=== PATIENT | female | born 1995 | race Hispanic/Latino ===

== ENCOUNTER 2016-05-18 09:45 | Observation (INO) | payer OTHER ==
[2016-05-18 09:48] VITALS: BMI 21.7
--- NOTE | 2016-05-18 09:58 | ED PDOC ---
HPI: General Adult Time Seen by Provider: 05/18/16 09:50 Chief Complaint (Nursing): Abdominal Pain Chief Complaint (Provider): abdominal pain History Per: Patient History/Exam Limitations: no limitations Additional Complaint(s): 21yo female brought in by EMS for complaint of diffuse abdominal pain since yesterday morning. States this has never happened before. Pain has been worse since 0300 today. Laying flat or standing up makes it worse. She's had 6x episodes vomit, but no diarrhea, urinary symptoms, changes in bowel movements, vaginal discharge. Last menstrual period was 2 weeks ago. States she's had spotting for 2 days but this is normal for her. No Hx ovarian cysts. Past Medical History Reviewed: Historical Data, Nursing Documentation, Vital Signs Vital Signs: Last Vital Signs Temp 98.8 F 05/18/16 09:46 Pulse 66 05/18/16 09:46 Resp BP 134/92 H 05/18/16 09:46 Pulse Ox 99 05/18/16 12:14 - Medical History PMH: No Chronic Diseases - Surgical History Surgical History: No Surg Hx - Family History Family History: States: Unknown Family Hx - Immunization History Hx Tetanus Toxoid Vaccination: No - Home Medications Home Medications: Ambulatory Orders Medication Instructions Recorded No Known Home Med 05/18/16 - Allergies Allergies/Adverse Reactions: Allergies Allergy/AdvReac Type Severity Reaction Status Date / Time No Known Allergies Allergy Unverified 05/18/16 10:02 Review of Systems ROS Statement: Except As Marked, All Systems Reviewed And Found Negative Constitutional: Negative for: Fever, Chills, Weakness, Malaise Eyes: Negative for: Pain ENT: Negative for: Ear Pain Cardiovascular: Negative for: Chest Pain Respiratory: Negative for: Cough, Shortness of Breath, SOB with Exertion Gastrointestinal: Positive for: Nausea, Vomiting, Abdominal Pain. Negative for : Diarrhea, Constipation Genitourinary Female: Positive for: Vaginal Bleeding (spotting). Negative for: Dysuria, Frequency, Hematuria, Vaginal Discharge Musculoskeletal: Negative for: Neck Pain Skin: Negative for: Rash Neurological: Negative for: Weakness, Numbness, Incoordination, Altered Mental Status Psych: Negative for: Anxiety, Depression Physical Exam - Reviewed Nursing Documentation Reviewed: Yes Vital Signs Reviewed: Yes - Physical Exam Appears: Positive for: Well, Non-toxic, No Acute Distress Head Exam: Positive for: ATRAUMATIC, NORMAL INSPECTION, NORMOCEPHALIC Skin: Positive for: Warm, Dry Eye Exam: Positive for: EOMI, PERRL Cardiovascular/Chest: Positive for: Regular Rate, Rhythm Respiratory: Positive for: Normal Breath Sounds. Negative for: Rales, Rhonchi, Wheezing Gastrointestinal/Abdominal: Positive for: Soft, Tenderness (suprapubic tenderness bilaterally, R>L) Pelvic Exam: Positive for: No Cerv. Motion Tender, Other (os is closed. R sided tenderness). Negative for: Cervicitis, Discharge, Tender W/Cervical Motion Extremity: Positive for: Normal ROM Neurologic/Psych: Positive for: Alert, Oriented - Laboratory Results Result Diagrams: 05/18/16 10:05 05/18/16 10:05 - ECG O2 Sat by Pulse Oximetry: 99 (RA) Pulse Ox Interpretation: Normal Medical Decision Making Medical Decision Makin differential includes UTI, , ovarian cyst, appendicitis. Plan: -labs -zofran -reglan --pain medication -iv fluids -reassess 1048 CT abd/pel w/ ordered due to concern for appendicitis. Labs significant for elevated wbc and anemia. UA negative. negative. Pending CT read 12:03 CT shows acute appendicitis. Surgery attending and resident paged. 12:[address] Thomas who is requesting NPO and Zosyn, with admission to hospitalist 1:[address] Sofia, hospitalist who accepts admission under his service. Disposition - Clinical Impression Clinical Impression: Appendicitis - Disposition Disposition Time: 12:06 Condition: FAIR Additional Comments - Additional Comments Additional Comments: Scribe Attestation: Documented by Calvin Gonzalez acting as a scribe for Pamela Hughes MD. Scribe Attestation: All medical record entries made by the Scribe were at my direction and personally dictated by me. I have reviewed the chart and agree that the record accurately reflects my personal performance of the history, physical exam, medical decision making, and the department course for this patient. I have also personally directed, reviewed, and agree with the discharge instructions and disposition.
[2016-05-18 10:19] LABS: BASO % 0.3 % (0.0-2.0); LYMPH # 0.8 K/uL (1.0-4.3); MEAN CELL VOLUME 81.1 fl (81.0-99.0); MEAN CORPUSCULAR HEMOGLOBIN 25.7 pg (27.0-31.0); MEAN CORPUSCULAR HGB CONC 31.7 g/dL (33.0-37.0); MEAN PLATELET VOLUME 9.1 fl (7.2-11.7); MONO # 0.8 K/uL (0.0-0.8); MONO % 5.5 % (0.0-10.0); NEUT # 13.7 K/uL (1.8-7.0); NEUT % 89.2 % (50.0-75.0); PLATELET COUNT 287 K/uL (130-400); RED CELL DISTRIBUTION WIDTH 15.1 % (11.5-14.5); WHITE BLOOD COUNT 15.4 K/uL (4.8-10.8)
[2016-05-18 10:30] LABS: ALB/GLOB RATIO 1.1 (1.0-2.1); ALKALINE PHOSPHATASE 58 U/L (38-126); ALT/SGPT 9 U/L (9-52); AST/SGOT 31 U/L (14-36); BILIRUBIN,TOTAL 0.6 mg/dl (0.2-1.3); BLOOD UREA NITROGEN 10 mg/dl (7-17); CALCIUM 9.4 mg/dL (8.4-10.2); CARBON DIOXIDE 20 mmol/L (22-30); CHLORIDE 104 mmol/L (98-107); GFR AFRICAN-AMERICAN > 60; GLUCOSE,RANDOM 105 mg/dL (65-105); LIPASE 107 U/L (23-300); MAGNESIUM 1.8 MG/DL (1.6-2.3); PHOSPHOROUS 3.9 mg/dl (2.5-4.5); SODIUM 139 mmol/l (132-148)
[2016-05-18 10:31] LABS: POTASSIUM 4.2 MMOL/L (3.6-5.0)
[2016-05-18] MEDS ORDERED: Sodium Chloride 0.9% 50 ML IV ONE (10:57)
[2016-05-18] MEDS ORDERED: Iohexol 300 100 ML IJ ONE (10:57)
[2016-05-18 10:58] LABS: RBC URINE 1 /hpf (0-3); URINE BILIRUBIN NEGATIVE (NEGATIVE); URINE BLOOD NEGATIVE (NEGATIVE); URINE COLOR YELLOW (YELLOW); URINE GLUCOSE (UA) NEG (Normal); URINE KETONE 80 mg/dL (NEGATIVE); URINE LEUKOCYTE ESTERASE NEG Leu/uL (Negative); URINE PROTEIN 30 mg/dL (NEGATIVE); URINE UROBILINOGEN 0.2-1.0 mg/dL (0.2-1.0); WBC URINE 1 /hpf (0-5)
[2016-05-18 11:42] LABS: NEUTROPHIL 82 % (42-75); REACTIVE LYMPHOCYTES 2 % (0-0); TOTAL CELLS COUNTED 100
[2016-05-18 11:45] LABS: LARGE PLATELETS PRESENT; PLATELET CLUMPS PRESENT
[2016-05-18 11:46] LABS: SPHEROCYTES SLIGHT
--- NOTE | 2016-05-18 11:59 | CT ---
PROCEDURE: CT Abdomen and Pelvis with contrast HISTORY: RLQ abdominal pain COMPARISON: None. TECHNIQUE: CT scan of the abdomen and pelvis was performed after intravenous administration of contrast. Oral contrast was not administered. Contrast dose: 95 mL Omnipaque 300 Radiation dose: Total exam DLP = 582.81 mGy-cm. This CT exam was performed using one or more of the following dose reduction techniques: Automated exposure control, adjustment of the mA and/or kV according to patient size, and/or use of iterative reconstruction technique. FINDINGS: LOWER THORAX: The lung bases are clear. LIVER: The liver is enlarged. There is homogeneous enhancement without focal mass. There is no intrahepatic biliary ductal dilatation. GALLBLADDER AND BILE DUCTS: There are no calcified gallstones. PANCREAS: The pancreas is normal in size and there is homogeneous enhancement without focal mass or ductal dilatation. SPLEEN: The spleen is normal in size and there is homogeneous enhancement without focal lesion. ADRENALS: Both adrenal glands are normal in size without discrete nodule. KIDNEYS AND URETERS: Both kidneys are normal in size and there is homogeneous enhancement without hydronephrosis or focal mass. VASCULATURE: Normal in appearance. No aortic aneurysm. BOWEL: The small bowel loops are normal in caliber. There is no evidence of bowel dilatation or wall thickening. There is moderate amount of stool in the colon. There is no evidence of bowel obstruction. APPENDIX: The appendix is fluid filled, distended and measures 16 mm in diameter. There are 2 appendicoliths in the tip of the appendix. There are minimal inflammatory changes in the right lower quadrant. PERITONEUM: There is moderate amount of free fluid in the pelvis. No free air. LYMPH NODES: No enlarged lymph nodes. BLADDER: The urinary bladder is partially distended and there is apparent moderate mural thickening likely related to underdistention. REPRODUCTIVE: Unremarkable. BONES: No acute fracture. Within normal limits for the patient's age. OTHER FINDINGS: None. IMPRESSION: Acute appendicitis. No evidence of perforation or abscess. Mild hepatomegaly. Clinical follow-up is advised.
[2016-05-18] MEDS ORDERED: Sodium Chloride 0.9% 1,000 ML IV SCH ×2 (13:00→18:20)
--- NOTE | 2016-05-18 13:26 | CP.PCM.HP ---
History of Present Illness - History of Present Illness History of Present Illness: 21 yo female with no significant PMH came in because of severe mid suparpubic pain since yesterday. Pain initially was on and off but has been more constant and unbearable today. Accompanying symptom was nausea and vomiting of previously taken food. Denied diarrhea, fever, chills or vaginal discharge. Present on Admission - Present on Admission Any Indicators Present on Admission: No History of DVT/PE: No History of Uncontrolled Diabetes: No Urinary Catheter: No Decubitus Ulcer Present: No Review of Systems - Review of Systems All systems: reviewed and no additional remarkable complaints except (aside from those mentioned above, 12 point system review were negative by me) Past Patient History - Infectious Disease Hx of Infectious Diseases: None - Past Social History Smoking Status: Never Smoked Chewing Tobacco Use: No Cigar Use: No Alcohol: Occasional Drugs: Denies - CARDIAC Hx Cardiac Disorders: No - PULMONARY Hx Respiratory Disorders: No - NEUROLOGICAL Hx Neurological Disorder: No - HEENT Hx HEENT Problems: No - RENAL Hx Chronic Kidney Disease: No - ENDOCRINE/METABOLIC Hx Endocrine Disorders: No - HEMATOLOGICAL/ONCOLOGICAL Hx Blood Disorders: No - INTEGUMENTARY Hx Dermatological Problems: No - MUSCULOSKELETAL/RHEUMATOLOGICAL Hx Musculoskeletal Disorders: No - GASTROINTESTINAL Hx Nausea: Yes Hx Vomiting: Yes - GENITOURINARY/GYNECOLOGICAL Hx Genitourinary Disorders: No - PSYCHIATRIC Hx Psychophysiologic Disorder: No Hx Substance Use: No - SURGICAL HISTORY Hx Surgeries: No - ANESTHESIA Hx Anesthesia: No Meds Allergies/Adverse Reactions: Allergies Allergy/AdvReac Type Severity Reaction Status Date / Time No Known Allergies Allergy Unverified 05/18/16 10:02 Physical Exam - Constitutional Appears: No Acute Distress - Head Exam Head Exam: ATRAUMATIC - Eye Exam Eye Exam: absent: Scleral icterus - ENT Exam ENT Exam: Mucous Membranes Moist - Neck Exam Neck exam: Negative for: Meningismus - Respiratory Exam Respiratory Exam: absent: Rhonchi, Respiratory Distress - Cardiovascular Exam Cardiovascular Exam: REGULAR RHYTHM, +S1, +S2 - GI/Abdominal Exam GI & Abdominal Exam: Soft, Tenderness. absent: Guarding, Rebound, Rigid - Rectal Exam Rectal Exam: Deferred - Extremities Exam Extremities exam: Negative for: pedal edema - Back Exam Back exam: absent: tenderness - Neurological Exam Neurological exam: Alert, Oriented x3 - Psychiatric Exam Psychiatric exam: Normal Affect - Skin Skin Exam: Dry, Intact Results - Vital Signs Recent Vital Signs: Last Vital Signs Temp 98.8 F 05/18/16 09:46 Pulse 66 05/18/16 09:46 Resp BP 134/92 H 05/18/16 09:46 Pulse Ox 99 05/18/16 13:02 - Labs Result Diagrams: 05/18/16 10:05 05/18/16 10:05 Labs: Laboratory Results - last 24 hr 05/18/16 05/18/16 10:05 10:20 WBC 15.4 H RBC 4.07 Hgb 10.4 L Hct 33.0 L MCV 81.1 MCH 25.7 L MCHC 31.7 L RDW 15.1 H Plt Count 287 MPV 9.1 Neut % (Auto) 89.2 H Lymph % (Auto) 5.0 L [place] % (Auto) 5.5 Eos % (Auto) 0.0 Baso % (Auto) 0.3 Neut # 13.7 H Lymph # 0.8 L [place] # 0.8 Eos # 0.0 Baso # 0.0 Neutrophils % (Manual) 82 H Band Neutrophils % 6 H Lymphocytes % (Manual) 4 L Reactive Lymphs % 2 H Monocytes % (Manual) 6 Platelet Estimate Normal Plt Clumps, EDTA Present Large Platelets Present Hypochromasia (manual) Slight Anisocytosis (manual) Slight Spherocytes Slight Sodium 139 Potassium 4.2 Chloride 104 Carbon Dioxide 20 L Anion Gap 19 BUN 10 Creatinine 0.7 Est GFR ( Amer) > 60 Est GFR (Non-Af Amer) > 60 Random Glucose 105 Calcium 9.4 Phosphorus 3.9 Magnesium 1.8 Total Bilirubin 0.6 AST 31 ALT 9 Alkaline Phosphatase 58 Total Protein 8.0 Albumin 4.2 Globulin 3.8 Albumin/Globulin Ratio 1.1 Lipase 107 Urine Color Yellow Urine Clarity Clear Urine pH 6.0 Ur Specific [place] 1.023 Urine Protein 30 Urine Glucose (UA) Neg Urine Ketones 80 Urine Blood Negative Urine Nitrate Negative Urine Bilirubin Negative Urine Urobilinogen 0.2-1.0 Ur Leukocyte Esterase Neg Urine RBC (Auto) 1 Urine Microscopic WBC 1 Ur Squamous Epith Cells 1 Assessment & Plan (1) Appendicitis Status: Acute Comment: place on observation in med/surg. keep NPO. surgical consult with Dr Thomas (called by ER). IV hydration with NSS 100cc/hr. Morphine 2mg IV q 4hrs prn. Zofran 4mg IV q 4hrs prn. Unasyn 3gm IV q 6hrs. Flagyl 500mg IV q 8hrs. Pt denied history of heart or pulmonary disease. She denied having SOB or chest pain. Pt is medically cleared for surgery.
--- NOTE | 2016-05-18 14:52 | CP.PCM.CON ---
<Altaf Chua - Last Filed: 05/18/16 14:45> History of Present Illness - History of Present Illness History of Present Illness: General Surgery Consult Re: appendicitis HPI: 21F presented to ED C/O abdominal pain that began yesterday morning. Pain was mild and periumbilical until 3AM today when increased pain woke her from sleep. She had 6 episodes of NBNB emesis. The pain migrated to the suprapubic area R > L. Pain aggravated when she straightens legs. No F/C, diarrhea, BRBPR, hematuria, dysuria. Last BM this AM, was normal. LMP was 2 weeks ago. PMH: Denies PSH: [place] teeth SH: Occasional EtOH, no tobacco or drug use. All: NKDA Meds: OCP Review of Systems - Review of Systems All systems: reviewed and no additional remarkable complaints except (as per HPi ) Past Patient History - Infectious Disease Hx of Infectious Diseases: None - Past Medical History & Family History Past Medical History?: No - Past Social History Smoking Status: Never Smoked - CARDIAC Hx Cardiac Disorders: No - PULMONARY Hx Respiratory Disorders: No - NEUROLOGICAL Hx Neurological Disorder: No - HEENT Hx HEENT Problems: No - RENAL Hx Chronic Kidney Disease: No - ENDOCRINE/METABOLIC Hx Endocrine Disorders: No - HEMATOLOGICAL/ONCOLOGICAL Hx Blood Disorders: No - INTEGUMENTARY Hx Dermatological Problems: No - MUSCULOSKELETAL/RHEUMATOLOGICAL Hx Musculoskeletal Disorders: No - GASTROINTESTINAL Hx Nausea: Yes Hx Vomiting: Yes - GENITOURINARY/GYNECOLOGICAL Hx Genitourinary Disorders: No - PSYCHIATRIC Hx Psychophysiologic Disorder: No Hx Substance Use: No - SURGICAL HISTORY Hx Surgeries: No - ANESTHESIA Hx Anesthesia: No Meds Allergies/Adverse Reactions: Allergies Allergy/AdvReac Type Severity Reaction Status Date / Time No Known Allergies Allergy Unverified 05/18/16 10:02 - Medications Medications: Current Medications Piperacillin Sod/Tazobactam (Sod 4.5 gm/ Sodium Chloride) 100 mls @ 100 mls/hr IVPB Q6 TOÑO Sodium Chloride (Sodium Chloride 0.9%) 1,000 mls @ 110 mls/hr IV .Q9H6M TOÑO Stop: 05/19/16 13:01 Last Admin: 05/18/16 14:06 Dose: 110 mls/hr Ampicillin Sodium/Sulbactam (Sodium 3 gm/ Sodium Chloride) 100 mls @ 100 mls/ hr IVPB Q6 TOÑO Metronidazole (Flagyl 500mg/100ml Ns) 100 mls @ 100 mls/hr IVPB Q8 TOÑO Morphine Sulfate (Morphine) 4 mg IVP Q4 PRN PRN Reason: Pain, moderate (4-7) Morphine Sulfate (Morphine) 2 mg IVP Q4 PRN PRN Reason: Pain, moderate (4-7) Ondansetron HCl (Zofran Inj) 4 mg IVP Q4 PRN PRN Reason: Nausea/Vomiting Physical Exam - Constitutional Appears: Non-toxic, No Acute Distress - Head Exam Head Exam: ATRAUMATIC, NORMOCEPHALIC - Eye Exam Eye Exam: EOMI. absent: Scleral icterus - ENT Exam ENT Exam: Mucous Membranes Dry Additional comments: trachea midline - Respiratory Exam Respiratory Exam: NORMAL BREATHING PATTERN. absent: Respiratory Distress - Cardiovascular Exam Cardiovascular Exam: RRR, +S1, +S2 - GI/Abdominal Exam GI & Abdominal Exam: Guarding (mostly in suprapubic area), Rebound (mild), Soft , Tenderness (in suprapubic area). absent: Distended, Firm, Rigid - Extremities Exam Extremities exam: Positive for: pedal pulses present. Negative for: calf tenderness, tenderness - Back Exam Back exam: absent: CVA tenderness (L), CVA tenderness (R) - Neurological Exam Neurological exam: Alert, Oriented x3 - Psychiatric Exam Psychiatric exam: Normal Affect, Normal Mood - Skin Skin Exam: Dry, Warm Results - Vital Signs Recent Vital Signs: Last Vital Signs Temp 98.8 F 05/18/16 09:46 Pulse 66 05/18/16 09:46 Resp BP 134/92 H 05/18/16 09:46 Pulse Ox 99 05/18/16 13:02 - Labs Result Diagrams: 05/18/16 10:05 05/18/16 10:05 - Imaging and Cardiology CT scan - abdomen Status: Image reviewed by me, Report reviewed by me Assessment & Plan - Assessment and Plan (Free Text) Assessment: 21F with acute appendicitis Plan: Zosyn Zofran Morphine IVF NPO To OR for lap appendectomy D/W Dr. Martha Chua PGY3 <Manuel Thomas - Last Filed: 05/18/16 18:03> History of Present Illness - History of Present Illness History of Present Illness: Patient was seen and examined at the bedside. Agree with resident's note above Meds - Medications Medications: Current Medications Sodium Chloride (Sodium Chloride 0.9%) 1,000 mls @ 110 mls/hr IV .Q9H6M TOÑO Stop: 05/19/16 13:01 Last Admin: 05/18/16 14:06 Dose: 110 mls/hr Ampicillin Sodium/Sulbactam (Sodium 3 gm/ Sodium Chloride) 100 mls @ 100 mls/ hr IVPB Q6 TOÑO Metronidazole (Flagyl 500mg/100ml Ns) 100 mls @ 100 mls/hr IVPB Q8 TOÑO Morphine Sulfate (Morphine) 4 mg IVP Q4 PRN PRN Reason: Pain, moderate (4-7) Morphine Sulfate (Morphine) 2 mg IVP Q4 PRN PRN Reason: Pain, moderate (4-7) Ondansetron HCl (Zofran Inj) 4 mg IVP Q4 PRN PRN Reason: Nausea/Vomiting Results - Vital Signs Recent Vital Signs: Last Vital Signs Temp 98.7 F 05/18/16 13:00 Pulse 81 05/18/16 13:00 Resp 19 05/18/16 13:00 BP 134/81 05/18/16 13:00 Pulse Ox 99 05/18/16 13:02 - Labs Result Diagrams: 05/18/16 10:05 05/18/16 10:05
[2016-05-18] MEDS ORDERED: Piperacillin/Tazobact 4.5 GM in Sodium Chloride 0.9% 100 ML IVPB SCH (16:00)
[2016-05-18] MEDS ORDERED: metroNIDAZOLE 500mg/100ml NS IVPB ONE (17:00)
[2016-05-18] MEDS ORDERED: Ampicillin/Sulbactam 3 gm Inj IVPB ONE (17:05)
[2016-05-18] MEDS ORDERED: Lactated Ringer's 1,000 ML IV ONE ×3 (17:25→19:56)
[2016-05-18] MEDS ORDERED: Sodium Chloride 0.9% 1,000 ML IV ONE ×2 (17:25)
[2016-05-18] MEDS ORDERED: Bupivacaine 0.5% 50 ML IJ ONE (17:53)
--- NOTE | 2016-05-18 18:10 | PCM.SURG1 ---
Surgeon's Initial Post Op Note - Surgeon's Notes Surgeon: Martha Edge Trimmer: PGY3, Andres PGY1 Type of Anesthesia: General Endo Pre-Operative Diagnosis: Acute appendicitis Operative Findings: Acute appendicitis, adhesions to broad ligament Post-Operative Diagnosis: Acute appendicitis Operation Performed: Laparoscopic appendectomy Specimen/Specimens Removed: Appendix Estimated Blood Loss: EBL {In ML}: 5 Blood Products Given: N/A Drains Used: No Drains Post-Op Condition: Good Date of Surgery/Procedure: 05/18/16 Time of Surgery/Procedure: 16:55
[2016-05-18] MEDS ORDERED: HYDROmorphone 0.5 mg/0.5 ml ISec IVP PRN (18:12)
[2016-05-18] MEDS ORDERED: Lactated Ringer's 1,000 ML IV SCH (18:15)
--- NOTE | 2016-05-18 19:20 | OP ---
PROCEDURE DATE: 05/18/2016 PREOPERATIVE DIAGNOSIS: Acute appendicitis. POSTOPERATIVE DIAGNOSIS: Acute appendicitis. PROCEDURE: Laparoscopic appendectomy. SURGEON: Manuel Thomas MD [place] MACHINE OPERATOR: ANESTHESIA: General with endotracheal intubation. INTRAVENOUS FLUIDS: Crystalloids. ESTIMATED BLOOD LOSS: 5 mL. INTRAOPERATIVE FINDINGS: Acute appendicitis. SPECIMEN: Appendix. BRIEF HISTORY: The patient is a very pleasant 21-year-old female who came to the hospital complaining of 1 day duration of abdominal pain. Upon further investigation, the patient was found to have elevated white blood cell count to 15 as well as CAT scan findings significant for acute appendicitis. All the risks and benefits of the procedure were explained to the patient and with the patient having a full understanding of all the risks and benefits involved, informed consent was obtained and patient was taken to the operating room for above stated procedure. PROCEDURE: The patient was brought into the operating room and placed supine on the operating table. Bilateral Flowtron boots were applied to patient's lower extremities. After successful induction of anesthesia and successful endotracheal intubation by the anesthesia team, a Jordan catheter was inserted into the patient's urinary bladder and subsequent to that, patient's abdomen was prepped with ChloraPrep stick and draped in the standard surgical fashion. Prior to the beginning of the procedure, timeout was called in the room and everyone in the room was in agreement. Using Veress needle, patient's abdomen was entered at the umbilicus and pneumoperitoneum was achieved with good opening pressures. Once this was accomplished, using an 11 blade scalpel knife , approximately a 5 mm incision was made in the umbilicus in a longitudinal fashion. Subsequent to that, a 5 mm trocar was introduced into the patient's abdomen. At that point in time, a 5 mm 0-degree scope was introduced into the patient's abdomen and abdomen was inspected. Then, attention was turned to the lower mid abdomen. Using 11 blade scalpel knife, approximately a 5 mm incision was made in the transverse fashion and subsequent to that, another 5 mm trocar was introduced into the patient's abdomen. Then, attention was turned to the left lower quadrant of the patient's abdomen. Using 11 blade scalpel knife, an approximately 1 cm incision was made in the left lower quadrant of the patient' s abdomen in a transverse fashion and subsequent to that, a 12 mm trocar was introduced into the patient's abdomen. At that point in time, using 2 atraumatic bowel graspers, appendix was freed up and at that point in time, using [place] dissector, a window was created between the appendix and the mesoappendix right at the base of the appendix. Once this was accomplished, using a blue load Endo-ABNER 45 mm stapler, appendix was taken right at the base and once this was accomplished, mesoappendix was taken with a bolton load 45 mm Endo-ABNER stapler. Once the mesoappendix was taken, staple line was inspected for hemostasis. Hemostasis was confirmatory. At that point in time, EndoCatch bag was introduced into the patient's abdomen. Appendix was placed inside of the bag and the bag was closed. Once this was accomplished, the 12 mm trocar together with EndoCatch bag and the appendix were removed from the patient's abdomen and passed off to the [facility] as a specimen. At that point in time, fascial layer at the 12 mm trocar site was closed with 2 interrupted 0 Vicryl sutures on UR-6 needle and once this was accomplished, the patient's abdomen was fully desufflated. The rest of the trocars were removed from the patient's abdomen and skin was closed with 4-0 Monocryl suture in a running subcuticular fashion. At the end of the procedure, incision sites were infiltrated with Marcaine anesthetic. The patient's abdomen was washed and dried and Dermabond was applied to the incision sites. At the end of the procedure, Jordan catheter was removed from the patient's urinary bladder and once this was accomplished, the patient was successfully extubated by the anesthesia team, transferred to the stretcher and taken to the recovery room in a stable condition. At the end of the procedure, all instrument counts, needles, sponges were correct. Manuel Thomas MD cc: [id number] TT: 05/18/2016 19:20:15 sn PATEL
[2016-05-18] MEDS: Ampicillin/Sulbactam 3 GM in Sodium Chloride 0.9% 100 ML IVPB SCH (22:12)
[2016-05-18 23:07] VITALS: RESP 20
[2016-05-19] MEDS: metroNIDAZOLE 500mg/100ml NS 100 ML IVPB SCH ×2 (01:00→08:37)
[2016-05-19] MEDS: Ampicillin/Sulbactam 3 GM in Sodium Chloride 0.9% 100 ML IVPB SCH ×2 (04:16→10:27)
[2016-05-19 06:59] LABS: BASO % 0.4 % (0.0-2.0); EOS % 0.2 % (0.0-4.0); HEMATOCRIT 27.6 % (34.0-47.0); LYMPH # 2.1 K/uL (1.0-4.3); LYMPH % 19.2 % (20.0-40.0); MEAN CELL VOLUME 80.7 fl (81.0-99.0); MEAN CORPUSCULAR HEMOGLOBIN 26.8 pg (27.0-31.0); MEAN CORPUSCULAR HGB CONC 33.3 g/dL (33.0-37.0); MEAN PLATELET VOLUME 9.1 fl (7.2-11.7); MONO # 1.3 K/uL (0.0-0.8); MONO % 11.7 % (0.0-10.0); NEUT # 7.4 K/uL (1.8-7.0); NEUT % 68.5 % (50.0-75.0); RED CELL DISTRIBUTION WIDTH 15.1 % (11.5-14.5); WHITE BLOOD COUNT 10.8 K/uL (4.8-10.8)
[2016-05-19 07:08] LABS: BLOOD UREA NITROGEN 7 mg/dl (7-17); CARBON DIOXIDE 26 mmol/L (22-30); CHLORIDE 105 mmol/L (98-107); GFR AFRICAN-AMERICAN > 60; GLUCOSE,RANDOM 85 mg/dL (65-105); POTASSIUM 3.5 MMOL/L (3.6-5.0); SODIUM 140 mmol/l (132-148)
--- NOTE | 2016-05-19 08:09 | CP.PCM.PN ---
<Altaf Chua - Last Filed: 05/19/16 08:06> Subjective - Date & Time of Evaluation Date of Evaluation: 05/19/16 Time of Evaluation: 06:55 - Subjective Subjective: General Surgery Pt S&E, NAEO. Pt tolerating liquids, ambulating, using IS. Pain improving. Objective - Vital Signs/Intake and Output Vital Signs (last 24 hours): Temp Pulse Resp BP Pulse Ox 98.8 F 76 20 121/72 96 05/19/16 01:00 05/19/16 01:00 05/19/16 01:00 05/19/16 01:00 05/19/16 01:00 - Medications Medications: Current Medications Ampicillin Sodium/Sulbactam (Sodium 3 gm/ Sodium Chloride) 100 mls @ 100 mls/ hr IVPB Q6 [facility] Last Admin: 05/19/16 04:16 Dose: 100 mls/hr Metronidazole (Flagyl 500mg/100ml Ns) 100 mls @ 100 mls/hr IVPB Q8 [facility] Last Admin: 05/19/16 01:00 Dose: 100 mls/hr Lactated Ringer's (Lactated Ringer's) 1,000 mls @ 100 mls/hr IV .Q10H TOÑO Sodium Chloride (Sodium Chloride 0.9%) 1,000 mls @ 75 mls/hr IV .[id number] TOÑO Morphine Sulfate (Morphine) 4 mg IVP Q4 PRN PRN Reason: Pain, moderate (4-7) Morphine Sulfate (Morphine) 2 mg IVP Q4 PRN PRN Reason: Pain, Mild (1-3) Ondansetron HCl (Zofran Inj) 4 mg IVP Q4 PRN PRN Reason: Nausea/Vomiting - Labs Labs: 05/19/16 06:43 05/19/16 06:43 - Constitutional Appears: Non-toxic, No Acute Distress - Head Exam Head Exam: ATRAUMATIC, NORMOCEPHALIC - Eye Exam Eye Exam: EOMI. absent: Scleral icterus - Respiratory Exam Respiratory Exam: NORMAL BREATHING PATTERN. absent: Respiratory Distress - GI/Abdominal Exam GI & Abdominal Exam: Guarding (mild), Soft, Tenderness (mild at incisions an RLQ ). absent: Distended, Firm, Rigid Additional comments: incisions C/D/I - Skin Skin Exam: Dry, Warm Assessment and Plan - Assessment and Plan (Free Text) Assessment: 21F s/p Lap appendectomy, POD#1 Plan: Advanced diet Encourage ambulation and IS use. Monitor for pain, nausea, emesis Dr. Thomas to see Chua PGY3 <Manuel Thomas - Last Filed: 05/19/16 11:26> Subjective - Date & Time of Evaluation Date of Evaluation: 05/19/16 Time of Evaluation: 10:40 - Subjective Subjective: Patient was seen and examined at the bedside. Agree with resident's note above Objective - Vital Signs/Intake and Output Vital Signs (last 24 hours): Temp Pulse Resp BP Pulse Ox 98.9 F 75 20 112/72 98 05/19/16 08:25 05/19/16 08:25 05/19/16 08:25 05/19/16 08:25 05/19/16 08:25 - Medications Medications: Current Medications Ampicillin Sodium/Sulbactam (Sodium 3 gm/ Sodium Chloride) 100 mls @ 100 mls/ hr IVPB Q6 [facility] Last Admin: 05/19/16 10:27 Dose: 100 mls/hr Metronidazole (Flagyl 500mg/100ml Ns) 100 mls @ 100 mls/hr IVPB Q8 [facility] Last Admin: 05/19/16 08:37 Dose: 100 mls/hr Potassium Chloride/Sodium Chloride (Potassium Chl 20 Meq In Ns) 1,000 mls @ 74.257 mls/hr IV .[id number] [facility] Last Admin: 05/19/16 10:35 Dose: 74.257 mls/hr Morphine Sulfate (Morphine) 4 mg IVP Q4 PRN PRN Reason: Pain, moderate (4-7) Morphine Sulfate (Morphine) 2 mg IVP Q4 PRN PRN Reason: Pain, Mild (1-3) Ondansetron HCl (Zofran Inj) 4 mg IVP Q4 PRN PRN Reason: Nausea/Vomiting - Labs Labs: 05/19/16 06:43 05/19/16 06:43 Assessment and Plan - Assessment and Plan (Free Text) Plan: - Regular diet - pain control - Clear for discharge home from the surgical stand point - Augmentin 875/125 mg po Q12h for 5 days on discharge - Patient will follow up with me in the office in 10 days to 2 weeks for post- op visit
[2016-05-19] MEDS ORDERED: Potassium Chl 20 mEq in NS 1,000 ML IV SCH (08:16)
[2016-05-19 13:02] VITALS: BP 113/73; PULSE 74; TEMP 98.4; O2SAT 99
--- NOTE | 2016-05-19 14:15 | CP.PCM.DIS ---
Provider - Provider Date of Admission: 05/18/16 13:01 Attending physician: Abram Sofia MD Consults: Dr Thomas Time Spent in preparation of Discharge (in minutes): 30 Diagnosis - Discharge Diagnosis (1) Appendicitis Status: Acute Comment: post appendectomy day #1. continue Percocet and Augmentin. Follow up with Dr Thomas as outpatient Hospital Course - Lab Results Lab Results: Most Recent Lab Values WBC 10.8 K/uL (4.8-10.8) 05/19/16 06:43 RBC 3.42 Mil/uL (3.80-5.20) L 05/19/16 06:43 Hgb 9.2 g/dL (12.0-16.0) L 05/19/16 06:43 Hct 27.6 % (34.0-47.0) L 05/19/16 06:43 MCV 80.7 fl (81.0-99.0) L 05/19/16 06:43 MCH 26.8 pg (27.0-31.0) L 05/19/16 06:43 MCHC 33.3 g/dL (33.0-37.0) 05/19/16 06:43 RDW 15.1 % (11.5-14.5) H 05/19/16 06:43 Plt Count 222 K/uL (130-400) 05/19/16 06:43 MPV 9.1 fl (7.2-11.7) 05/19/16 06:43 Neut % (Auto) 68.5 % (50.0-75.0) 05/19/16 06:43 Lymph % (Auto) 19.2 % (20.0-40.0) L 05/19/16 06:43 [place] % (Auto) 11.7 % (0.0-10.0) H 05/19/16 06:43 Eos % (Auto) 0.2 % (0.0-4.0) 05/19/16 06:43 Baso % (Auto) 0.4 % (0.0-2.0) 05/19/16 06:43 Neut # 7.4 K/uL (1.8-7.0) H 05/19/16 06:43 Lymph # 2.1 K/uL (1.0-4.3) 05/19/16 06:43 [place] # 1.3 K/uL (0.0-0.8) H 05/19/16 06:43 Eos # 0.0 K/uL (0.0-0.7) 05/19/16 06:43 Baso # 0.0 K/uL (0.0-0.2) 05/19/16 06:43 Neutrophils % (Manual) 82 % (42-75) H 05/18/16 10:05 Band Neutrophils % 6 % (0-2) H 05/18/16 10:05 Lymphocytes % (Manual) 4 % (20-50) L 05/18/16 10:05 Reactive Lymphs % 2 % (0-0) H 05/18/16 10:05 Monocytes % (Manual) 6 % (0-10) 05/18/16 10:05 Platelet Estimate Normal (NORMAL) 05/18/16 10:05 Plt Clumps, EDTA Present 05/18/16 10:05 Large Platelets Present 05/18/16 10:05 Hypochromasia (manual) Slight 05/18/16 10:05 Anisocytosis (manual) Slight 05/18/16 10:05 Spherocytes Slight 05/18/16 10:05 Sodium 140 mmol/l (132-148) 05/19/16 06:43 Potassium 3.5 MMOL/L (3.6-5.0) L 05/19/16 06:43 Chloride 105 mmol/L (98-107) 05/19/16 06:43 Carbon Dioxide 26 mmol/L (22-30) 05/19/16 06:43 Anion Gap 13 (10-20) 05/19/16 06:43 BUN 7 mg/dl (7-17) 05/19/16 06:43 Creatinine 0.9 mg/dL (0.7-1.2) 05/19/16 06:43 Est GFR ( Amer) > 60 05/19/16 06:43 Est GFR (Non-Af Amer) > 60 05/19/16 06:43 Random Glucose 85 mg/dL (65-105) 05/19/16 06:43 Calcium 8.0 mg/dL (8.4-10.2) L 05/19/16 06:43 Phosphorus 3.9 mg/dl (2.5-4.5) 05/18/16 10:05 Magnesium 1.8 MG/DL (1.6-2.3) 05/18/16 10:05 Total Bilirubin 0.6 mg/dl (0.2-1.3) 05/18/16 10:05 AST 31 U/L (14-36) 05/18/16 10:05 ALT 9 U/L (9-52) 05/18/16 10:05 Alkaline Phosphatase 58 U/L (38-126) 05/18/16 10:05 Total Protein 8.0 G/DL (6.3-8.2) 05/18/16 10:05 Albumin 4.2 g/dL (3.5-5.0) 05/18/16 10:05 Globulin 3.8 gm/dL (2.2-3.9) 05/18/16 10:05 Albumin/Globulin Ratio 1.1 (1.0-2.1) 05/18/16 10:05 Lipase 107 U/L (23-300) 05/18/16 10:05 Urine Color Yellow (YELLOW) 05/18/16 10:20 Urine Clarity Clear (Clear) 05/18/16 10:20 Urine pH 6.0 (5.0-8.0) 05/18/16 10:20 Ur Specific [place] 1.023 (1.003-1.030) 05/18/16 10:20 Urine Protein 30 mg/dL (NEGATIVE) 05/18/16 10:20 Urine Glucose (UA) Neg mg/dL (Normal) 05/18/16 10:20 Urine Ketones 80 mg/dL (NEGATIVE) 05/18/16 10:20 Urine Blood Negative (NEGATIVE) 05/18/16 10:20 Urine Nitrate Negative (NEGATIVE) 05/18/16 10:20 Urine Bilirubin Negative (NEGATIVE) 05/18/16 10:20 Urine Urobilinogen 0.2-1.0 mg/dL (0.2-1.0) 05/18/16 10:20 Ur Leukocyte Esterase Neg Chas/uL (Negative) 05/18/16 10:20 Urine RBC (Auto) 1 /hpf (0-3) 05/18/16 10:20 Urine Microscopic WBC 1 /hpf (0-5) 05/18/16 10:20 Ur Squamous Epith Cells 1 /hpf (0-5) 05/18/16 10:20 - Hospital Course Hospital Course: 21 yo female with no significant PMH admitted because of severe mid suparpubic pain secondary to acute appendicitis. Appendectomy was done successfully and patient discharged in stable condition the following day. Discharge Exam - Head Exam Head Exam: ATRAUMATIC, NORMOCEPHALIC - Eye Exam Eye Exam: absent: Scleral icterus - ENT Exam ENT Exam: Mucous Membranes Moist - Respiratory Exam Respiratory Exam: NORMAL BREATHING PATTERN. absent: Wheezes, Respiratory Distress - Cardiovascular Exam Cardiovascular Exam: REGULAR RHYTHM, +S1, +S2 - GI/Abdominal Exam GI & Abdominal Exam: Soft, Tenderness (mild tenderness on operative site) - Rectal Exam Rectal Exam: Deferred - Neurological Exam Neurological exam: Alert, Oriented x3 - Psychiatric Exam Psychiatric exam: Normal Affect - Skin Skin Exam: Dry, Intact Discharge Plan - Discharge Medications Prescriptions: Amoxicillin/Clavulanate [Augmentin 875 MG-125 MG] 1 tab PO BID #10 tab oxyCODONE/Acetaminophen [Percocet 5/325 mg Tab] 1 ea PO Q4 PRN #10 tab PRN Reason: Pain, Moderate (4-7) - Follow Up Plan Condition: FAIR Disposition: HOME/ ROUTINE Instructions: Laparoscopic Appendectomy (DC) Additional Instructions: Do not lift over 5 lbs. Call MD for fever over 101, any redness or drainage from puncture sites. May shower, water hitting back. Cleanse gently with soap and water and pat dry. Regular diet.
== END 2016-05-19 15:54 | disposition home or self-care (01) ==
LOC: H.ER 09:45 → INTOOBSV 13:01 → H.ERHOLD 13:01 → H.MEDSURG1 20:20
DX: K35.80 Unspecified acute appendicitis (principal)